=== PATIENT | female | born 1935 | race Caucasian/White ===

== ENCOUNTER 2020-08-07 12:42 | Emergency (ER) | payer MEDICARE, OTHER ==
[~2020-08-07 12:42] MED LIST: ADVAIR 500-501 EACH INH; ASPIR 8181 MG PO; ASPIRIN EC81 MG PO; CARDIZEM CD240 MG PO; CYANOCOBAL1000 MCG/1 INJ; ELIQUIS 2.5 MG2.5 MG PO; ELIQUIS5 MG PO; FOSAMAX70 MG PO; IMDUR ER TAB 3030 MG PO; LASIX20 MG PO; LOPRESSOR 25 MG25 MG PO; LOPRESSOR 50 MG50 MG PO; MULTAQ400 MG PO; NITROSTAT0.4 MG SL; OXYBUTYNIN CHLO15 MG PO; PRAVACHOL40 MG PO; PROVENTIL HFA 61 INH INH; XARELTO15 MG PO; ZYLOPRIM100 MG PO; ZYRTEC10 MG PO
[2020-08-07 14:59] LABS: HEMOGLOBIN 14.1 gm/dl (12.3-15.3); RED BLOOD COUNT 4.43 M/UL (4.00-5.10); WHITE BLOOD COUNT 9.9 K/UL (4.5-11.0)
[2020-08-07 15:26] LABS: BUN/CREATININE RATIO 16 (0-10)
[2020-08-07] MEDS ORDERED: ZOFRAN4 MG PO (17:35)
[2021-02-18] MEDS ORDERED: ELIQUIS5 MG PO (07:44)
[2021-02-18] MEDS ORDERED: LOPRESSOR 25 MG25 MG PO (07:46)
[2021-02-18] MEDS ORDERED: CARTIA XT240 MG PO (07:47)
== END 2020-08-07 18:11 | disposition home or self-care (01) ==
LOC: ER1 12:42
PROVIDERS: Family Medicine
DX: B34.9 Viral infection, unspecified (principal); E86.0 Dehydration; I10 Essential (primary) hypertension; J44.9 Chronic obstructive pulmonary disease, unspecified; Z20.828 Contact with and (suspected) exposure to other viral communicable diseases; Z91.040 Latex allergy status; Z91.048 Other nonmedicinal substance allergy status
CPT/HCPCS: 71045; 80053; 82550; 82553; 83690; 83874; 83880; 84484; 85025; 85652; 86140; 87635; 93005; 96374; 99284; J2405; J7030

== ENCOUNTER → 2020-09-17 | Outpatient (CLI) | payer MEDICARE, OTHER ==
[~2020-09-17] MED LIST changes: +CARTIA XT240 MG PO; +IBUPROFEN600 MG PO; +PERCOCET 5/325 T1 EA PO; +ZOFRAN4 MG PO
== END ==
LOC: HEART 5 08:30
DX: I50.22 Chronic systolic (congestive) heart failure (principal); I50.32 Chronic diastolic (congestive) heart failure; I27.20 Pulmonary hypertension, unspecified; I70.0 Atherosclerosis of aorta; I08.1 Rheumatic disorders of both mitral and tricuspid valves
CPT/HCPCS: 93306

== ENCOUNTER → 2020-10-11 | Outpatient (CLI) | payer MEDICARE, OTHER | LOC: EXRD 10:19 | DX: R10.9 Unspecified abdominal pain (principal); I73.9 Peripheral vascular disease, unspecified; N28.89 Other specified disorders of kidney and ureter; Z90.49 Acquired absence of other specified parts of digestive tract | CPT/HCPCS: 76700; 93922; 93925 ==

== ENCOUNTER 2020-10-20 18:12 | Emergency (ER) | payer MEDICARE, OTHER ==
[~2020-10-20 18:12] MED LIST changes: -CARTIA XT240 MG PO; -IBUPROFEN600 MG PO; -PERCOCET 5/325 T1 EA PO
[2020-10-20 20:16] LABS: RED BLOOD COUNT 4.76 M/UL (4.00-5.10); WHITE BLOOD COUNT 9.2 K/UL (4.5-11.0)
[2020-10-20 20:39] LABS: BUN/CREATININE RATIO 18 (0-10)
[2020-10-21] MEDS ORDERED: IBUPROFEN600 MG PO (15:19)
[2020-10-21] MEDS ORDERED: PERCOCET 5/325 T1 EA PO (15:19)
[2021-02-18] MEDS ORDERED: ELIQUIS5 MG PO (07:44)
[2021-02-18] MEDS ORDERED: LOPRESSOR 25 MG25 MG PO (07:46)
[2021-02-18] MEDS ORDERED: CARTIA XT240 MG PO (07:47)
== END 2020-10-21 15:35 | disposition home or self-care (01) ==
LOC: ER1 18:12
PROVIDERS: Emergency Medicine
DX: R07.89 Other chest pain (principal); I12.9 Hypertensive chronic kidney disease with stage 1 through stage 4 chronic kidney disease, or unspecified chronic kidney disease; N18.30 Chronic kidney disease, stage 3 unspecified; J44.9 Chronic obstructive pulmonary disease, unspecified; Z86.718 Personal history of other venous thrombosis and embolism; Z88.2 Allergy status to sulfonamides; Z90.710 Acquired absence of both cervix and uterus
CPT/HCPCS: 71045; 78580; 80053; 82550; 82553; 83874; 83880; 84484; 85025; 85379; 93005; 96374; 96375; 99285; A9540; J2270; J2405; Q9967

== ENCOUNTER → 2020-10-29 | Outpatient (CLI) | payer MEDICARE, OTHER ==
[~2020-10-29] MED LIST changes: +CARTIA XT240 MG PO; +IBUPROFEN600 MG PO; +PERCOCET 5/325 T1 EA PO
== END ==
LOC: EXRD 10:16
DX: I83.11 Varicose veins of right lower extremity with inflammation (principal); I83.12 Varicose veins of left lower extremity with inflammation; R60.0 Localized edema; Z53.9 Procedure and treatment not carried out, unspecified reason

== ENCOUNTER → 2020-11-04 | Outpatient (CLI) | payer MEDICARE, OTHER | LOC: HEART 5 10-23 11:00 | DX: I87.2 Venous insufficiency (chronic) (peripheral) (principal); M10.9 Gout, unspecified; I10 Essential (primary) hypertension; N28.9 Disorder of kidney and ureter, unspecified; J45.909 Unspecified asthma, uncomplicated; G60.8 Other hereditary and idiopathic neuropathies; M19.072 Primary osteoarthritis, left ankle and foot; M54.17 Radiculopathy, lumbosacral region | CPT/HCPCS: 93970 ==

== ENCOUNTER → 2021-02-11 | Outpatient (CLI) | payer MEDICARE, OTHER | LOC: EXRD 10:23 | DX: M81.0 Age-related osteoporosis without current pathological fracture (principal) | CPT/HCPCS: 77080 ==

== ENCOUNTER → 2021-02-18 | Day surgery (SDC) | payer MEDICARE, OTHER | END | disposition home or self-care (01) | LOC: OR 06:35 | DX: D12.3 Benign neoplasm of transverse colon (principal); K57.30 Diverticulosis of large intestine without perforation or abscess without bleeding; K64.0 First degree hemorrhoids; I10 Essential (primary) hypertension; Z88.2 Allergy status to sulfonamides; Z79.01 Long term (current) use of anticoagulants; E66.9 Obesity, unspecified; Z68.32 Body mass index [BMI] 32.0-32.9, adult; K52.9 Noninfective gastroenteritis and colitis, unspecified; Z20.822 Contact with and (suspected) exposure to COVID-19; I48.91 Unspecified atrial fibrillation | CPT/HCPCS: J2704; J7040 ==

== ENCOUNTER → 2021-07-09 | Outpatient (CLI) | payer MEDICARE, OTHER | LOC: EXRD 14:46 | DX: M25.571 Pain in right ankle and joints of right foot (principal) | CPT/HCPCS: 73610 ==

== ENCOUNTER → 2021-07-22 | Outpatient (CLI) | payer MEDICARE, OTHER | LOC: EXRD 10:55 | DX: M25.571 Pain in right ankle and joints of right foot (principal); R60.0 Localized edema | CPT/HCPCS: 93971 ==

== ENCOUNTER 2021-09-26 08:41 | Emergency (ER) | payer MEDICARE, OTHER ==
[2021-09-26 10:53] LABS: HEMOGLOBIN 14.3 gm/dl (12.3-15.3); RED BLOOD COUNT 4.69 M/UL (4.00-5.10); WHITE BLOOD COUNT 6.4 K/UL (4.5-11.0)
[2021-09-26 11:23] LABS: BUN/CREATININE RATIO 18 (0-10)
[2021-09-26] MEDS ORDERED: LIDOCAINE HCL1 EACH TP (17:16)
== END 2021-09-26 19:10 | disposition home or self-care (01) ==
LOC: ER1 08:41
PROVIDERS: Emergency Medicine
DX: R07.89 Other chest pain (principal); I13.0 Hypertensive heart and chronic kidney disease with heart failure and stage 1 through stage 4 chronic kidney disease, or unspecified chronic kidney disease; I50.9 Heart failure, unspecified; N18.9 Chronic kidney disease, unspecified; I48.0 Paroxysmal atrial fibrillation; E78.5 Hyperlipidemia, unspecified; Z85.3 Personal history of malignant neoplasm of breast; Z79.01 Long term (current) use of anticoagulants; Z79.899 Other long term (current) drug therapy; Z90.5 Acquired absence of kidney
CPT/HCPCS: 71250; 80053; 82550; 82553; 83605; 83874; 83880; 84484; 85025; 93005; 99285; Q9967

== ENCOUNTER → 2021-10-09 | Outpatient (CLI) | payer MEDICARE, OTHER ==
[~2021-10-09] MED LIST changes: +LIDOCAINE HCL1 EACH TP
== END ==
LOC: EXRD 14:36
DX: M25.571 Pain in right ankle and joints of right foot (principal); M89.9 Disorder of bone, unspecified; R93.6 Abnormal findings on diagnostic imaging of limbs
CPT/HCPCS: 73590; 73610

== ENCOUNTER → 2021-10-28 | Outpatient (CLI) | payer MEDICARE, OTHER | LOC: KOH-I 14:18 | DX: M25.571 Pain in right ankle and joints of right foot (principal); R60.0 Localized edema | CPT/HCPCS: 73610 ==

== ENCOUNTER → 2021-11-18 | Outpatient (CLI) | payer MEDICARE, OTHER | LOC: MRI 09:02 | PROVIDERS: Nurse Practitioner Family | DX: M89.9 Disorder of bone, unspecified (principal) | CPT/HCPCS: 36415; 73718; 80048 ==

== ENCOUNTER → 2022-02-10 | Outpatient (CLI) | payer MEDICARE, OTHER | LOC: EXRD 11:19 | DX: N18.30 Chronic kidney disease, stage 3 unspecified (principal); N28.1 Cyst of kidney, acquired | CPT/HCPCS: 76775 ==